=== PATIENT | female | born 1955 | race Caucasian/White ===

== ENCOUNTER 2024-07-05 07:54 | Outpatient (CLI) | payer MEDICARE, SELFPAY | END 2024-07-05 07:55 | disposition home or self-care (01) | PROVIDERS: Visit Provider Otolaryngology | DX: H90.3 Sensorineural hearing loss, bilateral (principal); H93.13 Tinnitus, bilateral | CPT/HCPCS: 92557; 92567 ==

== ENCOUNTER 2024-08-15 12:54 | Outpatient (RCR) | payer MEDICARE, SELFPAY | END 2024-11-13 23:59 | disposition home or self-care (01) | LOC: ANHAUDASC 12:54 | PROVIDERS: Visit Provider Otolaryngology | DX: Z46.1 Encounter for fitting and adjustment of hearing aid (principal) | CPT/HCPCS: V5261 ==